=== PATIENT | female | born 1995 | race Caucasian/White ===

== ENCOUNTER 2022-11-18 18:10 | Emergency (ER) | payer OTHER, SELFPAY ==
--- NOTE | ~2022-11-18 | XR_ITS ---
EXAM: XR foot RT min 3V DATE: 11/18/2022 18:27 HISTORY: JAMMED LAT FOOT, PAIN TO DISTAL 5TH METATARSAL AREA . COMPARISON: None available. FINDINGS: Normal mineralization. No fracture or dislocation. No lytic or blastic lesion. Joint space s are maintained. No erosion or periosteal change. Soft tissues within normal limits. IMPRESSION: No acute osseous finding in the right foot. Reviewed, dictated and finalized at location K.
[2022-11-18 18:17] VITALS: BP 152/76; PULSE 65; RESP 16; TEMP 36.6; O2SAT 100
--- NOTE | 2022-11-18 18:20 | ED.LOWEXIN ---
HPI - Extremity Injury (Lower) General Chief Complaint: Extremity Injury, Lower Stated Complaint: Right Foot Injury Source: patient and RN notes reviewed History of Present Illness HPI Narrative: 27 yo F presents to urgent care with complaints of right foot pain. Pt states 9 days ago, she kicked a corn hole board. Denies any numbness or tingling. Pt states the pain and swelling are worse after being at work all day on her feet. Pt been taking ibuprofen at home with minimal relief. Related Data Home Medications Medication Instructions Recorded Confirmed No Home Medications 11/18/22 11/18/22 Allergies Allergy/AdvReac Type Severity Reaction Status Date / Time No Known Allergies Allergy Verified 11/18/22 18:39 Review of Systems Review of Systems: CONSTITUTIONAL: Denies fever, chills, or sweats. EYES: Denies visual changes, redness, or discharge. ENT: Denies otalgia and sore throat CARDIOVASCULAR: Denies chest pain, palpitations, or edema. RESPIRATORY: Denies cough or dyspnea. GASTROINTESTINAL: Denies abdominal pain, nausea, vomiting, or diarrhea. GENITOURINARY: Denies dysuria or hematuria. SKIN: Denies rash or itching. MUSCULOSKELETAL:Right foot and toe pain NEUROLOGIC: Denies headache, numbness, or weakness. Pertinent positives per HPI. PMFSH Comments At the time of my signature, I reviewed and agree with the nursing past medical, surgical, social, and family history. There is no relevant family history pertinent to the patient complaint. Exam Narrative: GENERAL: This is a well-nourished, well-developed patient, in no apparent distress. HEAD: normocephalic, atraumatic. EYES: Sclera clear/white. Vision is grossly intact. EARS: External ears normal, auditory canals clear and without drainage. Hearing grossly intact. NOSE: External nose normal with no obvious nasal discharge, nares without redness, no rhinorrhea. THROAT: Mucous membranes moist, posterior pharynx clear. NECK: Neck supple, non-tender without lymphadenopathy, masses or thyromegaly. CARDIOVASCULAR: Regular rate RESPIRATORY: No respiratory distress SKIN: warm, intact with no suspicious lesions or rash, good texture and turgor. NEURO: awake, alert, and oriented to person, place and time. There were no obvious focal neurologic abnormalities. EXTREMITIES: mild tenderness to right 5th metatarsal and toe Course Course Level of Care: Express Care Visit Vital Signs Vital signs: Vital Signs Temperature 97.9 F 11/18/22 18:17 Pulse Rate 65 11/18/22 18:17 Respiratory Rate 16 11/18/22 18:17 Blood Pressure 152/76 H 11/18/22 18:17 Pulse Oximetry 100 11/18/22 18:17 Oxygen Delivery Room Air 11/18/22 18:17 Temperature 97.9 F 11/18/22 18:17 Pulse Rate 65 11/18/22 18:17 Respiratory Rate 16 11/18/22 18:17 Blood Pressure 152/76 H 11/18/22 18:17 Pulse Oximetry 100 11/18/22 18:17 Oxygen Delivery Room Air 11/18/22 18:17 Reviewed MDM - Extremity Injury (Lower) MDM Narrative Medical decision making narrative: Use the RICE method at home. May take ibuprofen and/or Tylenol if needed. If symptoms persist in 1 week after conservative treatment, follow-up with specialist. Differential Diagnosis Differential diagnosis: Likely puncture wound of foot, fracture of toe and other (foot contusion) Imaging Data Radiologist's impression: [place] [address] XRay Report Signed Patient: Oswaldo San : 1995 MR#: [id number] Age/Sex: 27 / F Acct:[id number] Loc: [facility]? ? ADM Date: 11/18/22Attending Dr: Ordering Physician: Mia Ortiz APRN Date of Service: 11/18/22 Procedure(s): XR foot RT min 3V Accession Number(s): [id number] cc: Mia Ortiz APRN~ EXAM:? XR foot RT min 3V DATE: 11/18/2022 18:27 HISTORY: JAMMED LAT FOOT, PAIN TO DISTAL 5TH METATARSAL AREA . COMPARISON:? None available. FIND
== END 2022-11-18 18:50 | disposition home or self-care (01) ==
PROVIDERS: Emergency Provider Nurse Practitioner Family
DX: S90.31XA Contusion of right foot, initial encounter (principal); W22.09XA Striking against other stationary object, initial encounter
CPT/HCPCS: 73630; 99203; G0463